=== PATIENT | female | born 2000 | race Caucasian/White ===

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

== ENCOUNTER 2020-12-17 19:41 | Emergency (ER) | payer OTHER ==
[2020-12-17] MEDS ORDERED: Sodium Chloride 0.9% 1000 ML 1,000 ML IV STA (20:09)
[2020-12-17] MEDS ORDERED: MORPHINE SULFATE 2 MG INJ IV ONE (20:09)
[2020-12-17] MEDS ORDERED: Zofran 4 MG/2 ML VIAL IV ONE (20:09)
--- NOTE | 2020-12-17 20:16 | ERPHSYRPT ---
- History of Present Illness Historian: patient Exam Limitations: no limitations Patient Subjective Stated Complaint: Patient states " I have been having ABD pain with nausea and vomiting last couple of days. The ABD pain is all over my ABD and it goes into my back" I have tried to lay down and do different things but it hasn't helped my pain and I just feel like shit". Triage Nursing Assessment: Patient arrived to ED per self and ambulated to room without difficulty. Gait steady. Patient A/O times 4. Patient able to follow directions without difficulty. Patient able to void and leave urine sample. Lungs clear bilateral A/P throughout. Patient denies any SOB or chest pain. Cap refill < 3 seconds. No S/S of acute respriatory distress noted. + BS times 4 quads. ABD soft, round, non-distended. Patient noted with pain over entire ABD upon palpitation. Patient states the pain is constant and just continues to get worse. + radial and pedal pulses noted. No dependent edema noted. Oral mucosa clean, moist. Skin turgor < 3 seconds with no S/S of dehydration noted. Patient stated her appetite has really been poor last couple of days. Patient states she has been having a H/A and generalized weakness last couple of days. Central color good. Neuro checks WNL. ROM WNL to all extremities. Physician History: Healthy 20-year-old female who presents with diffuse abdominal pain and low back pain. Darted about 3 to 4 days ago. Worsening. She is a nausea and vomiting as well. No diarrhea or constipation. Fever or URI symptoms and no issues urinating. Sexually active and has missed the last. So possibility of . Denies any vaginal bleeding or vaginal discharge. And also mentioning loss of appetite and taste. Timing/Duration: day(s) (4) Activities at Onset: none Quality: cramping Abdominal Pain Onset Location: generalized abdomen Pain Radiation: no radiation Severity of Pain-Max: mild Severity of Pain-Current: moderate Modifying Factors: Improves With: nothing Associated Symptoms: back, loss of appetite, nausea, vomiting Previous symptoms: no prior history Allergies/Adverse Reactions: No Known Drug Allergies Allergy (Verified 12/17/20 20:12) Hx Tetanus, Diphtheria Vaccination/Date Given: Yes Hx Influenza Vaccination/Date Given: No Hx Pneumococcal Vaccination/Date Given: No Immunizations Up to Date: Yes Travel Risk - International Travel Have you traveled outside of the country in past 3 weeks: No - Coronavirus Screening Are you exhibiting any of the following symptoms?: Yes Symptoms: Vomiting/Diarrhea, Headaches/Body Aches/Fatigue Close contact with a COVID-19 positive Pt in past 14-21 Days: No - Review of Systems Constitutional: No Fever, No Chills Eyes: No Symptoms Ears, Nose, & Throat: No Symptoms Respiratory: No Cough, No Dyspnea Cardiac: No Chest Pain, No Edema, No Syncope Abdominal/Gastrointestinal: Abdominal Pain, Nausea, Vomiting, No Diarrhea Genitourinary Symptoms: No Dysuria Musculoskeletal: No Back Pain, No Neck Pain Skin: No Rash Neurological: No Dizziness, No Focal Weakness, No Sensory Changes Psychological: No Symptoms Endocrine: No Symptoms All Other Systems: Reviewed and Negative - Past Medical History Pertinent Past Medical History: Yes Neurological History: No Pertinent History ENT History: No Pertinent History Cardiac History: No Pertinent History Respiratory History: No Pertinent History Endocrine Medical History: Hyperthyroidism Musculoskeletal History: No Pertinent History GI Medical History: No Pertinent History History: No Pertinent History Psycho-Social History: No Pertinent History Female Reproductive Disorders: No Pertinent History - Past Surgical History Past Surgical History: No Neuro Surgical History: No Pertinent History Cardiac: No Pertinent History Respiratory: No Pertinent History Gastrointestinal: No Pertinent History Genitourinary: No Pertinent History Musculoskeletal: No Pertinent History Female Surgical History: No Pertinent History - Social History Smoking Status: Never smoker Exposure to second hand smoke: Yes Drug Use: none Patient Lives Alone: No - Female History Hx Last Menstrual Period: 11/10/20 Hx Now: No - Nursing Vital Signs Nursing Vital Signs: Initial Vital Signs Temperature 98.4 F 12/17/20 19:51 Pulse Rate 91 H 12/17/20 19:51 Respiratory Rate 18 12/17/20 19:51 Blood Pressure 117/74 12/17/20 19:51 O2 Sat by Pulse Oximetry 100 12/17/20 19:51 Pain Scale Pain Intensity 7 - Physical Exam General Appearance: no apparent distress, alert Eye Exam: PERRL/EOMI, eyes nml inspection Ears, Nose, Throat Exam: normal ENT inspection, pharynx normal, moist mucous membranes Neck Exam: normal inspection, non-tender, supple, full range of motion Respiratory Exam: normal breath sounds, lungs clear, No respiratory distress Cardiovascular Exam: regular rate/rhythm, normal heart sounds Gastrointestinal/Abdomen Exam: soft, tenderness, No distention, No mass, No guarding, No rebound, No organomegaly Pelvic Exam: not done Back Exam: normal inspection, normal range of motion, No CVA tenderness, No vertebral tenderness Extremity Exam: normal inspection, normal range of motion, pelvis stable Neurologic Exam: alert, oriented x 3, cooperative, normal mood/affect, nml cerebellar function, sensation nml, No motor deficits Skin Exam: normal color, warm, dry SpO2: 100 - Course Nursing assessment & vital signs reviewed: Yes EKG Interpreted by Me: Sinus Rhythm, NORMAL AXIS, NORMAL INTERVALS, NORMAL QRS Ordered Tests: Active Orders 24 hr Category Date Time Status EKG-ER Only STAT Care 12/17/20 20:09 Active IV Insertion STAT Care 12/17/20 20:09 Active NPO (ED) STAT Care 12/17/20 20:09 Active AMYLASE Stat Lab 12/17/20 20:42 Completed BMP Stat Lab 12/17/20 20:42 Completed CBC W DIFF Stat Lab 12/17/20 20:42 Completed CULTURE,URINE Stat Lab 12/17/20 20:22 Received HCG,QUALITATIVE URINE Stat Lab 12/17/20 20:22 Completed Hepatic Function Panel Stat Lab 12/17/20 20:42 Completed LIPASE Stat Lab 12/17/20 20:42 Completed PROTIME WITH INR Stat Lab 12/17/20 20:42 Completed TROPONIN Q3H Lab 12/17/20 20:42 Completed TROPONIN Q3H Lab 12/17/20 23:15 Ordered TROPONIN Q3H Lab 12/18/20 02:15 Ordered TROPONIN Q3H Lab 12/18/20 05:15 Ordered TROPONIN Q3H Lab 12/18/20 08:15 Ordered UA W/RFX UR CULTURE Stat Lab 12/17/20 20:22 Completed Medication Summary Discontinued Medications Generic Name Dose Route Start Last Admin Trade Name Freq PRN Reason Stop Dose Admin Sodium Chloride 1,000 mls @ 999 mls/hr 12/17/20 20:09 12/17/20 20:45 Sodium Chloride 0.9% 1000 Ml IV 12/17/20 21:09 999 mls/hr .Q1H1M STA Administration Sodium Chloride Confirm 12/17/20 20:41 Sodium Chloride 0.9% 1000 Ml Administered 12/17/20 20:42 Dose 1,000 mls @ ud .ROUTE .STK-MED ONE Morphine Sulfate 2 mg 12/17/20 20:09 12/17/20 20:45 Morphine Sulfate 2 Mg Inj IV 12/17/20 20:10 2 mg STAT ONE Administration Morphine Sulfate Confirm 12/17/20 20:41 Morphine Sulfate 2 Mg Inj Administered 12/17/20 20:42 Dose 2 mg .ROUTE .STK-MED ONE Ondansetron HCl 4 mg 12/17/20 20:09 12/17/20 20:45 Zofran 4 Mg/2 Ml Vial IV 12/17/20 20:10 4 mg STAT ONE Administration Ondansetron HCl Confirm 12/17/20 20:41 Zofran 4 Mg/2 Ml Vial Administered 12/17/20 20:42 Dose 4 mg .ROUTE .STK-MED ONE Lab/Rad Data: Laboratory Result Diagrams 12/17/20 20:42 12/17/20 20:42 Laboratory Results 12/17/20 12/17/20 12/17/20 Range/Units 20:42 20:42 20:42 WBC (4.0-10.5) K/mm3 RBC (4.1-5.4) M/mm3 Hgb (12.0-16.0) gm/dl Hct (35-47) % MCV (78-100) fl MCH (26-32) pg MCHC (32-36) g/dl RDW (11.5-14.0) % Plt Count (150-450) K/mm3 MPV (7.5-11.0) fl Gran % (36.0-66.0) % Eos # (Auto) (0-0.5) Absolute Lymphs (auto) (1.0-4.6) Absolute Monos (auto) (0.0-1.3) Lymphocytes % (24.0-44.0) % Monocytes % (0.0-12.0) % Eosinophils % (0.00-5.0) % Basophils % (0.0-0.4) % Absolute Granulocytes (1.4-6.9) Basophils # (0-0.4) PT 12.5 H (9.95-12.35) SECONDS INR 1.11 (0.8-3.0) Sodium 138 (137-145) mmol/L Potassium 3.5 (3.5-5.1) mmol/L Chloride 104 (98-107) mmol/L Carbon Dioxide 23 (22-30) mmol/L Anion Gap 14.6 (5-15) MEQ/L BUN 12 (7-17) mg/dL Creatinine 0.79 (0.52-1.04) mg/dL Estimated GFR > 60.0 ML/MIN Glucose 115 H (74-106) mg/dL Calcium 9.4 (8.4-10.2) mg/dL Total Bilirubin 0.30 (0.2-1.3) mg/dL Direct Bilirubin 0 (0.0-0.4) mg/dL AST 25 (14-36) U/L ALT 18 (0-35) U/L Alkaline Phosphatase 58 (38-126) U/L Troponin I < 0.012 (0.000-0.034) ng/mL Serum Total Protein 7.1 (6.3-8.2) g/dL Albumin 4.1 (3.5-5.0) g/dL Amylase 39 (30-110) U/L Lipase 40 (23-300) U/L Urine Color (YELLOW) Urine Appearance (CLEAR) Urine pH (5-6) Ur Specific [place] (1.005-1.025) Urine Protein (Negative) Urine Ketones (NEGATIVE) Urine Blood (0-5) Rob/ul Urine Nitrite (NEGATIVE) Urine Bilirubin (NEGATIVE) Urine Urobilinogen (0-1) mg/dL Ur Leukocyte Esterase (NEGATIVE) Urine WBC (Auto) (0-5) /HPF Urine RBC (Auto) (0-2) /HPF U Epithel Cells (Auto) (FEW) /HPF Urine Bacteria (Auto) (NEGATIVE) /HPF Urine Mucus (Auto) (NEGATIVE) /HPF Urine Culture Reflexed (NO) Urine Glucose (NEGATIVE) mg/dL Urine HCG, Qual (Negative) 12/17/20 12/17/20 12/17/20 Range/Units 20:42 20:22 20:22 WBC 6.5 (4.0-10.5) K/mm3 RBC 4.19 (4.1-5.4) M/mm3 Hgb 12.0 (12.0-16.0) gm/dl Hct 36.7 (35-47) % MCV 87.6 (78-100) fl MCH 28.6 (26-32) pg MCHC 32.7 (32-36) g/dl RDW 13.6 (11.5-14.0) % Plt Count 193 (150-450) K/mm3 MPV 10.0 (7.5-11.0) fl Gran % 57.9 (36.0-66.0) % Eos # (Auto) 0.09 (0-0.5) Absolute Lymphs (auto) 1.98 (1.0-4.6) Absolute Monos (auto) 0.63 (0.0-1.3) Lymphocytes % 30.7 (24.0-44.0) % Monocytes % 9.8 (0.0-12.0) % Eosinophils % 1.4 (0.00-5.0) % Basophils % 0.2 (0.0-0.4) % Absolute Granulocytes 3.74 (1.4-6.9) Basophils # 0.01 (0-0.4) PT (9.95-12.35) SECONDS INR (0.8-3.0) Sodium (137-145) mmol/L Potassium (3.5-5.1) mmol/L Chloride (98-107) mmol/L Carbon Dioxide (22-30) mmol/L Anion Gap (5-15) MEQ/L BUN (7-17) mg/dL Creatinine (0.52-1.04) mg/dL Estimated GFR ML/MIN Glucose (74-106) mg/dL Calcium (8.4-10.2) mg/dL Total Bilirubin (0.2-1.3) mg/dL Direct Bilirubin (0.0-0.4) mg/dL AST (14-36) U/L ALT (0-35) U/L Alkaline Phosphatase (38-126) U/L Troponin I (0.000-0.034) ng/mL Serum Total Protein (6.3-8.2) g/dL Albumin (3.5-5.0) g/dL Amylase (30-110) U/L Lipase (23-300) U/L Urine Color YELLOW (YELLOW) Urine Appearance SLIGHTLY CLOUDY (CLEAR) Urine pH 5.0 (5-6) Ur Specific [place] 1.021 (1.005-1.025) Urine Protein NEGATIVE (Negative) Urine Ketones TRACE (NEGATIVE) Urine Blood MODERATE (0-5) Rob/ul Urine Nitrite NEGATIVE (NEGATIVE) Urine Bilirubin NEGATIVE (NEGATIVE) Urine Urobilinogen NEGATIVE (0-1) mg/dL Ur Leukocyte Esterase TRACE (NEGATIVE) Urine WBC (Auto) 6-10 (0-5) /HPF Urine RBC (Auto) 3-5 (0-2) /HPF U Epithel Cells (Auto) RARE (FEW) /HPF Urine Bacteria (Auto) RARE (NEGATIVE) /HPF Urine Mucus (Auto) SLIGHT (NEGATIVE) /HPF Urine Culture Reflexed YES (NO) Urine Glucose NEGATIVE (NEGATIVE) mg/dL Urine HCG, Qual POSITIVE (Negative) - Progress Progress: improved Progress Note: 12/17/20 21:17 Get abdominal work-up including amylase, lipase and urinalysis also due to her period being late. Results fairly unremarkable except for positive . Discussed plans going forward. Referral to OB will be given. Prescription for vitamins. Guidance given as well. DC home. Counseled pt/family regarding: lab results, diagnosis, need for follow-up - Departure Departure Disposition: Home Clinical Impression: Condition: Stable Critical Care Time: No Referrals: DOCTOR,NO FAMILY [Primary Care Provider] - ANUM MAYERS DO [ACTIVE STAFF] - Instructions: Taking in Enough Fluids While You are Additional Instructions: Symptoms closely. Use nausea medication only as needed. Drink plenty of water. Referral to OB included in your discharge paperwork. Please call for appointment. Return to ER if worse. Prescriptions: Ondansetron ODT 4 MG [Zofran Odt 4 mg] 4 mg PO Q6H PRN PRN #10 tab.rapdis PRN Reason: Vomiting Pnv No.121/Iron/Folic Acid [ Multivitamin Tablet] 1 each PO DAILY 90 Days #90 tablet
[2020-12-17] MEDS ORDERED: Zofran 4 MG/2 ML VIAL ONE (20:41)
[2020-12-17] MEDS ORDERED: Sodium Chloride 0.9% 1000 ML 1,000 ML ONE (20:41)
[2020-12-17] MEDS ORDERED: MORPHINE SULFATE 2 MG INJ ONE (20:41)
[2020-12-17 20:44] LABS: Absolute Neutrophil Ct (ANC) 3.74 (1.4-6.9); BASOPHIL % 0.2 % (0.0-0.4); Basophil (Absolute #) 0.01 (0-0.4); Eosinophil % 1.4 % (0.00-5.0); Eosinophil (Absolute #) 0.09 (0-0.5); Hematocrit 36.7 % (35-47); Lymphocyte (Absolute #) 1.98 (1.0-4.6); Lymphocytes % 30.7 % (24.0-44.0); Mean Cell Volume 87.6 fl (78-100); Mean Corpuscular Hemoglobin 28.6 pg (26-32); Mean Corpuscular Hgb Concent. 32.7 g/dl (32-36); Monocyte (Absolute #) 0.63 (0.0-1.3); Monocytes % 9.8 % (0.0-12.0); Neutrophil % 57.9 % (36.0-66.0); Platelet Count 193 K/mm3 (150-450); Red Blood Count 4.19 M/mm3 (4.1-5.4); Red Cell Distribution Width 13.6 % (11.5-14.0); White Blood Count 6.5 K/mm3 (4.0-10.5)
[2020-12-17 20:51] LABS: Appearance SLIGHTLY CLOUDY (CLEAR); Bacteria RARE /HPF (NEGATIVE); Bilirubin NEGATIVE (NEGATIVE); Blood MODERATE Ery/ul (0-5); Epithelial Cells RARE /HPF (FEW); Glucose NEGATIVE (NEGATIVE); Ketones TRACE (NEGATIVE); Leukocyte Esterase TRACE (NEGATIVE); Mucus SLIGHT /HPF (NEGATIVE); Nitrite NEGATIVE (NEGATIVE); Protein,Urine Dip NEGATIVE (Negative); Specific Gravity 1.021 (1.005-1.025); Urobilinogen NEGATIVE mg/dL (0-1)
[2020-12-17 20:56] LABS: ALBUMIN 4.1 g/dL (3.5-5.0); ALKALINE PHOSPHATASE 58 U/L (38-126); AMYLASE 39 U/L (30-110); ANION GAP 14.6 MEQ/L (5-15); BLOOD UREA NITROGEN 12 mg/dL (7-17); CHLORIDE 104 mmol/L (98-107); Calcium 9.4 mg/dL (8.4-10.2); Carbon Dioxide 23 mmol/L (22-30); Creatinine 1 0.79 mg/dL (0.52-1.04); EST GLOMERULAR FILTRATION RATE > 60.0 ML/MIN; Glucose 115 mg/dL (74-106); LIPASE 40 U/L (23-300); Potassium 3.5 mmol/L (3.5-5.1); SGOT/AST 25 U/L (14-36); SGPT/ALT 18 U/L (0-35); SODIUM 138 mmol/L (137-145); Total Protein 7.1 g/dL (6.3-8.2)
[2020-12-17 21:00] LABS: INR 1.11 (0.8-3.0); PROTIME 12.5 SECONDS (9.95-12.35)
[2020-12-17 21:03] LABS: Direct Bilirubin 0 mg/dL (0.0-0.4)
[2020-12-17 21:22] VITALS: O2SAT 100
[2020-12-17 22:08] VITALS: BP 118/78; PULSE 75
== END 2020-12-17 22:07 | disposition home or self-care (01) ==
LOC: ED 19:41
DX: R10.9 Unspecified abdominal pain (principal); R11.2 Nausea with vomiting, unspecified; Z33.1 Pregnant state, incidental
CPT/HCPCS: 36000; 36415; 80048; 80076; 81001; 82150; 83690; 84484; 84703; 85025; 85610; 87086; 93005; 96374; 96375; 99284; J2270; J2405

== ENCOUNTER 2022-01-21 22:03 | Emergency (ER) | payer OTHER ==
[2022-01-21] MEDS ORDERED: Sodium Chloride 0.9% 1000 ML 1,000 ML IV STA (22:53)
[2022-01-21] MEDS ORDERED: Sodium Chloride 0.9% 1000 ML 1,000 ML ONE (22:56)
[2022-01-21 23:18] VITALS: O2SAT 98
[2022-01-21 23:24] LABS: Absolute Neutrophil Ct (ANC) 3.71 (1.4-6.9); Basophil (Absolute #) 0.02 (0-0.4); Eosinophil (Absolute #) 0.14 (0-0.5); Hematocrit 36.9 % (35-47); Hemoglobin 12.4 gm/dl (12.0-16.0); Lymphocyte (Absolute #) 2.54 (1.0-4.6); Lymphocytes % 35.9 % (24.0-44.0); Mean Cell Volume 88.3 fl (78-100); Mean Corpuscular Hemoglobin 29.7 pg (26-32); Mean Corpuscular Hgb Concent. 33.6 g/dl (32-36); Mean Platelet Volume 10.6 fl (7.5-11.0); Monocyte (Absolute #) 0.67 (0.0-1.3); Monocytes % 9.5 % (0.0-12.0); Neutrophil % 52.3 % (36.0-66.0); Platelet Count 233 K/mm3 (150-450); Red Blood Count 4.18 M/mm3 (4.1-5.4); Red Cell Distribution Width 13.4 % (11.5-14.0); White Blood Count 7.1 K/mm3 (4.0-10.5)
[2022-01-21 23:25] LABS: Bacteria RARE /HPF (NEGATIVE); Epithelial Cells RARE /HPF (FEW); Mucus SLIGHT /HPF (NEGATIVE); RBC 0-2 /HPF (0-2)
[2022-01-21 23:27] LABS: Appearance CLEAR (CLEAR); Bilirubin NEGATIVE (NEGATIVE); Dipstick done @ ? MAIN LAB; Glucose NEGATIVE (NEGATIVE); Ketones NEGATIVE (NEGATIVE); Nitrite NEGATIVE (NEGATIVE); Protein,Urine Dip NEGATIVE (Negative); RBC SMALL Ery/ul (0-5); Specific Gravity >=1.030 (1.005-1.025); Urobilinogen 0.2 mg/dL (0-1)
[2022-01-21 23:28] LABS: Urine Cultured Indicated? YES
[2022-01-21 23:54] LABS: ALKALINE PHOSPHATASE 60 U/L (38-126); ANION GAP 14.3 MEQ/L (5-15); BLOOD UREA NITROGEN 15 mg/dL (7-17); CHLORIDE 109 mmol/L (98-107); Calcium 9.3 mg/dL (8.4-10.2); Carbon Dioxide 20 mmol/L (22-30); Creatinine 1 0.61 mg/dL (0.52-1.04); EST GLOMERULAR FILTRATION RATE > 60.0 ML/MIN; Glucose 92 mg/dL (74-106); Potassium 3.9 mmol/L (3.5-5.1); SGOT/AST 21 U/L (14-36); SGPT/ALT 11 U/L (0-35); SODIUM 139 mmol/L (137-145); Total Protein 6.7 g/dL (6.3-8.2)
[2022-01-21] MEDS ORDERED: TYLENOL EXTRA STRENGTH 500 MG PO STA (23:54)
[2022-01-21] MEDS ORDERED: TYLENOL EXTRA STRENGTH 500 MG ONE (23:56)
[2022-01-21] MEDS ORDERED: ROCEPHIN 1 Gm-D5w 50 ml Bag** 1 G/50 ML IVPB IV STA (23:57)
--- NOTE | 2022-01-21 23:58 | ERPHSYRPT ---
- History of Present Illness Time Seen by Provider: 01/21/22 22:23 Source: patient Exam Limitations: no limitations Patient Subjective Stated Complaint: pt states she has been having light spotting for the past week. states she has been having lower back pain and cramping. Triage Nursing Assessment: pt alert and oriented, answers questions approp. pt ambulatory with steady gait noted. respirations nonlabored. skin pink and warm. Physician History: 21 years old 2 para 1 at almost 7 weeks gestation per LMP presented in the ER with 1 week history of intermittent spotting and low back pain dull aching mild nature with generalized weakness fatigue and tiredness. Patient reports only spotting with no lito bleeding are passing of tissues.Did not even soak 1 pad. She was seen at [facility] couple of weeks ago and ultrasound was done but they could not see pole at that time. Denies any urinary symptoms. No fever or chills reported. Timing/Duration: week(s) (1), intermittent Activites at Onset: rest Quality: dullness Onset Location: low back pain Pain Radiation: none Severity of Pain-Max: moderate Severity of Pain-Current: mild Sexual intercourse history: non-contributory Modifying Factors: Improves With: nothing Associated Symptoms: Allergies/Adverse Reactions: No Known Drug Allergies Allergy (Verified 01/21/22 22:25) Home Medications: Levothyroxine Sodium 25 Mcg [Synthroid 25 Mcg] 25 mcg PO DAILY 01/21/22 [History] Hx Tetanus, Diphtheria Vaccination/Date Given: Yes Hx Influenza Vaccination/Date Given: No Hx Pneumococcal Vaccination/Date Given: No Travel Risk - International Travel Have you traveled outside of the country in past 3 weeks: No - Coronavirus Screening Are you exhibiting any of the following symptoms?: No Close contact with a COVID-19 positive Pt in past 14-21 Days: No - Vaccine Status Have you recieved a Covid-19 vaccination: Yes Batch Unit Treater: Moderna - Vaccination Dates Date of 2cond Vaccination (if applicable): 11/30/21 - Review of Systems Constitutional: Fatigue, Weakness Eyes: No Symptoms Ears, Nose, & Throat: No Symptoms Respiratory: No Symptoms Cardiac: No Symptoms Abdominal/Gastrointestinal: No Symptoms Genitourinary Symptoms: , Vaginal Bleeding Musculoskeletal: Back Pain Psychological: Anxiety Endocrine: No Symptoms Hematologic/Lymphatic: No Symptoms Immunological/Allergic: No Symptoms - Past Medical History Pertinent Past Medical History: Yes Neurological History: No Pertinent History ENT History: No Pertinent History Cardiac History: No Pertinent History Respiratory History: No Pertinent History Endocrine Medical History: Hypothyroidism Musculoskeletal History: No Pertinent History GI Medical History: No Pertinent History History: No Pertinent History Psycho-Social History: No Pertinent History Female Reproductive Disorders: No Pertinent History - Past Surgical History Past Surgical History: Yes Neuro Surgical History: No Pertinent History Cardiac: No Pertinent History Respiratory: No Pertinent History Gastrointestinal: No Pertinent History Genitourinary: No Pertinent History Musculoskeletal: No Pertinent History Female Surgical History: Section Other Surgical History: c section 6 mos ago - Social History Smoking Status: Never smoker Exposure to second hand smoke: No Drug Use: none Patient Lives Alone: Yes - Female History Hx Last Menstrual Period: 11/26/21 Hx Now: Yes - Nursing Vital Signs Nursing Vital Signs: Initial Vital Signs Temperature 98.3 F 01/21/22 22:09 Pulse Rate 92 H 01/21/22 22:09 Respiratory Rate 16 01/21/22 22:09 Blood Pressure 110/76 01/21/22 22:09 O2 Sat by Pulse Oximetry 97 01/21/22 22:09 Pain Scale Pain Intensity 8 - Physical Exam General Appearance: no apparent distress, alert, anxiety Eye Exam: PERRL/EOMI Ears, Nose, Throat Exam: normal ENT inspection Neck Exam: normal inspection, full range of motion Respiratory Exam: normal breath sounds, lungs clear Cardiovascular Exam: regular rate/rhythm, normal heart sounds Gastrointestinal/Abdomen Exam: soft, normal bowel sounds, No tenderness Back Exam: normal inspection, normal range of motion Extremity Exam: normal inspection, normal range of motion Neurologic Exam: alert, oriented x 3, cooperative Skin Exam: normal color SpO2 Interpretation: normal SpO2: 98 O2 Delivery: Room Air Ordered Tests: Active Orders 24 hr Category Date Time Status IV Insertion STAT Care 01/21/22 22:53 Completed CBC W DIFF Stat Lab 01/21/22 23:08 Completed CMP Stat Lab 01/21/22 23:08 Completed CULTURE,URINE Stat Lab 01/21/22 23:10 Received HCG, Quantitative (Inhouse) Stat Lab 01/21/22 23:08 Completed Medication Summary Discontinued Medications Generic Name Dose Route Start Last Admin Trade Name Freq PRN Reason Stop Dose Admin Acetaminophen 1,000 mg 01/21/22 23:54 01/21/22 23:56 Acetaminophen 500 Mg Tablet PO 01/21/22 23:55 1,000 mg STAT STA Administration Acetaminophen Confirm 01/21/22 23:56 Acetaminophen 500 Mg Tablet Administered 01/21/22 23:57 Dose 1,000 mg .ROUTE .STK-MED ONE Sodium Chloride 1,000 mls @ 999 mls/hr 01/21/22 22:53 01/21/22 23:55 Sodium Chloride 0.9% 1000 Ml IV 01/21/22 23:53 Infused .Q1H1M STA Infusion Sodium Chloride Confirm 01/21/22 22:56 Sodium Chloride 0.9% 1000 Ml Administered 01/21/22 22:57 Dose 1,000 mls @ ud .ROUTE .STK-MED ONE Ceftriaxone Sodium/Dextrose 1 g in 50 mls @ 100 mls/hr 01/21/22 23:57 01/22/22 00:45 Rocephin 1 Gm-D5w 50 Ml Bag IV 01/22/22 00:26 Infused STAT STA Infusion Ceftriaxone Sodium/Dextrose Confirm 01/21/22 23:59 Rocephin 1 Gm-D5w 50 Ml Bag Administered 01/22/22 00:00 Dose 1 g in 50 mls @ ud IV .STK-MED ONE Lab/Rad Data: Laboratory Result Diagrams 01/21/22 23:08 01/21/22 23:08 Laboratory Results 01/21/22 01/21/22 01/21/22 Range/Units 23:10 23:08 23:08 WBC (4.0-10.5) K/mm3 RBC (4.1-5.4) M/mm3 Hgb (12.0-16.0) gm/dl Hct (35-47) % MCV (78-100) fl MCH (26-32) pg MCHC (32-36) g/dl RDW (11.5-14.0) % Plt Count (150-450) K/mm3 MPV (7.5-11.0) fl Gran % (36.0-66.0) % Eos # (Auto) (0-0.5) Absolute Lymphs (auto) (1.0-4.6) Absolute Monos (auto) (0.0-1.3) Lymphocytes % (24.0-44.0) % Monocytes % (0.0-12.0) % Eosinophils % (0.00-5.0) % Basophils % (0.0-0.4) % Absolute Granulocytes (1.4-6.9) Basophils # (0-0.4) Sodium 139 (137-145) mmol/L Potassium 3.9 (3.5-5.1) mmol/L Chloride 109 H (98-107) mmol/L Carbon Dioxide 20 L (22-30) mmol/L Anion Gap 14.3 (5-15) MEQ/L BUN 15 (7-17) mg/dL Creatinine 0.61 (0.52-1.04) mg/dL Estimated GFR > 60.0 ML/MIN Glucose 92 (74-106) mg/dL Calcium 9.3 (8.4-10.2) mg/dL Total Bilirubin 0.30 (0.2-1.3) mg/dL AST 21 (14-36) U/L ALT 11 (0-35) U/L Alkaline Phosphatase 60 (38-126) U/L Serum Total Protein 6.7 (6.3-8.2) g/dL Albumin 4.0 (3.5-5.0) g/dL Beta HCG, Quant 209894 mIU/ml Urinalys Dipstick Clnc MAIN LAB Urine Color YELLOW (YELLOW) Urine Appearance CLEAR (CLEAR) Urine pH 6.0 (5-6) Ur Specific [place] >=1.030 (1.005-1.025) POC Urine Protein Conf NEGATIVE (Negative) Urine Ketones NEGATIVE (NEGATIVE) Urine Nitrite NEGATIVE (NEGATIVE) Urine Bilirubin NEGATIVE (NEGATIVE) Urine Urobilinogen 0.2 (0-1) mg/dL Urine Leukocytes NEGATIVE (NEGATIVE) Urine WBC (Auto) 6-10 (0-5) /HPF Urine RBC (Auto) 0-2 (0-2) /HPF U Epithel Cells (Auto) RARE (FEW) /HPF Urine Bacteria (Auto) RARE (NEGATIVE) /HPF Urine RBC SMALL (0-5) Rob/ul Urine Mucus (Auto) SLIGHT (NEGATIVE) /HPF Ur Culture Indicated? YES Urine Glucose NEGATIVE (NEGATIVE) mg/dL ABO Group A Rh Factor POSITIVE Antibody Screen NEGATIVE (NEGATIVE) 01/21/22 Range/Units 23:08 WBC 7.1 (4.0-10.5) K/mm3 RBC 4.18 (4.1-5.4) M/mm3 Hgb 12.4 (12.0-16.0) gm/dl Hct 36.9 (35-47) % MCV 88.3 (78-100) fl MCH 29.7 (26-32) pg MCHC 33.6 (32-36) g/dl RDW 13.4 (11.5-14.0) % Plt Count 233 (150-450) K/mm3 MPV 10.6 (7.5-11.0) fl Gran % 52.3 (36.0-66.0) % Eos # (Auto) 0.14 (0-0.5) Absolute Lymphs (auto) 2.54 (1.0-4.6) Absolute Monos (auto) 0.67 (0.0-1.3) Lymphocytes % 35.9 (24.0-44.0) % Monocytes % 9.5 (0.0-12.0) % Eosinophils % 2.0 (0.00-5.0) % Basophils % 0.3 (0.0-0.4) % Absolute Granulocytes 3.71 (1.4-6.9) Basophils # 0.02 (0-0.4) Sodium (137-145) mmol/L Potassium (3.5-5.1) mmol/L Chloride (98-107) mmol/L Carbon Dioxide (22-30) mmol/L Anion Gap (5-15) MEQ/L BUN (7-17) mg/dL Creatinine (0.52-1.04) mg/dL Estimated GFR ML/MIN Glucose (74-106) mg/dL Calcium (8.4-10.2) mg/dL Total Bilirubin (0.2-1.3) mg/dL AST (14-36) U/L ALT (0-35) U/L Alkaline Phosphatase (38-126) U/L Serum Total Protein (6.3-8.2) g/dL Albumin (3.5-5.0) g/dL Beta HCG, Quant mIU/ml Urinalys Dipstick Clnc Urine Color (YELLOW) Urine Appearance (CLEAR) Urine pH (5-6) Ur Specific [place] (1.005-1.025) POC Urine Protein Conf (Negative) Urine Ketones (NEGATIVE) Urine Nitrite (NEGATIVE) Urine Bilirubin (NEGATIVE) Urine Urobilinogen (0-1) mg/dL Urine Leukocytes (NEGATIVE) Urine WBC (Auto) (0-5) /HPF Urine RBC (Auto) (0-2) /HPF U Epithel Cells (Auto) (FEW) /HPF Urine Bacteria (Auto) (NEGATIVE) /HPF Urine RBC (0-5) Rob/ul Urine Mucus (Auto) (NEGATIVE) /HPF Ur Culture Indicated? Urine Glucose (NEGATIVE) mg/dL ABO Group Rh Factor Antibody Screen (NEGATIVE) - Progress Progress: improved Air Movement: good Progress Note: 01/22/22 00:21 years old is evaluated for low back pain, intermittent spotting early in the . She is given fluids and Tylenol for symptomatic relief. On reevaluation patient is feeling much better. Grossly unremarkable work-up but does have some element of UTI and given a dose of Rocephin in here 1 continue with Keflex to go home. I have reviewed her lab work and ultrasound from [facility] which showed 4 weeks 6 days IUP/gestational sac without poles and no ectopic. Do not think she needs another ultrasound. Recommended pelvic rest, increase hydration and outpatient OB follow-up. Discussed signs symptoms of worsening needing return to ER which she seems understanding. 01/22/22 0Patient changed her pad while in the ER and there was dark color spott ing with no clots. She is thoroughly counseled about conservative management at this stage in . She was not happy with that we do not have OB available in the ER and left without paperwork. Blood Culture(s) Obtained: No Antibiotics given: Yes Counseled pt/family regarding: lab results, diagnosis, need for follow-up, rad results - Departure Departure Disposition: Home Clinical Impression: UTI in , antepartum, Vaginal bleeding affecting early Condition: Stable Critical Care Time: No Referrals: DOCTOR,NO FAMILY [Primary Care Provider] - Follow up/PCP as directed ANUM MAYERS DO [ACTIVE STAFF] - Follow up/PCP as directed (Call tomorrow for appointment for reevaluation) Instructions: Bleeding With (DC), Urinary Tract Infections in Additional Instructions: Drink plenty of fluids to keep yourself well-hydrated. Follow-up with OB for reevaluation. Return to ER for worsening low back pain, increasing vaginal bleeding, cramping etc. Take Tylenol as needed. Prescriptions: Cephalexin Mh 500 mg [Keflex 500 mg] 500 mg PO TID #21 cap
[2022-01-21] MEDS ORDERED: ROCEPHIN 1 Gm-D5w 50 ml Bag** 1 G/50 ML IVPB IV ONE (23:59)
[2022-01-22 00:05] VITALS: BP 110/80; PULSE 77
[2022-01-22 00:12] LABS: ABO TYPING A; Antibody Screen NEGATIVE (NEGATIVE); RH TYPING POSITIVE
== END 2022-01-22 01:00 | disposition home or self-care (01) ==
LOC: ED 22:03
DX: O23.41 Unspecified infection of urinary tract in pregnancy, first trimester (principal); N39.0 Urinary tract infection, site not specified; Z3A.01 Less than 8 weeks gestation of pregnancy; O20.9 Hemorrhage in early pregnancy, unspecified; M54.50 Low back pain, unspecified; R53.1 Weakness; R53.83 Other fatigue
CPT/HCPCS: 36000; 36415; 80053; 81015; 84702; 85025; 86850; 86900; 86901; 87086; 96360; 96365; 99284; J0696; A9270-GY

== ENCOUNTER 2024-01-12 21:53 | Emergency (ER) | payer MEDICAID, OTHER ==
[2024-01-12 22:14] VITALS: TEMP 99.3
--- NOTE | 2024-01-12 22:27 | ERPHSYRPT ---
- History of Present Illness Time Seen by Provider: 01/12/24 22:10 Source: patient Exam Limitations: no limitations Patient Subjective Stated Complaint: pt states she had a bartholen cyst removed from inside her vagina on 01/07/11 at [facility] and has been having vag inal burning pain as has been fatigued. Triage Nursing Assessment: pt ambulated to room 9 independently with slow steady gait after standing on scale for weight acquisition and to bathroom to provide urine sample. pt is alert and oriented times three, able to speak in complete sentences, able to move all extremities, and with resp even and unlabored. pt states that she is moving all extremities like normal but that she just "lays on the couch". reports 8/10 burning pain to vagina. denies lightheadedness, dizziness, cp, n/v/ diarrhea, difficulty with urinary or bowel elimination. Physician History: 23yo f presents for fatigue, malaise, chills lasting 4d. Pt had bartholin's gland removed by Dr White at [facility] on 01/08/24. Pt reports she has felt poorly since. Pt was told she had UTI, was started on nitrofurantoin yesterday. Pt states she has been having davila/brown discharge that is foul smelling in nature since her procedure. Pt reports some pain in the vagina in area of the operation, otherwise denies abdominal pain. Pt denies cp, soa, n/v. Timing/Duration: day(s) (4d) Quality: sharpness Onset Location: vaginal Pain Radiation: none Severity of Pain-Max: mild Severity of Pain-Current: mild Prior abdominal problems: other (recent surgery 01/08/24 Dr White [facility]) Associated Symptoms: chills, diaphoresis, dysuria, vaginal discharge, No nausea, No vomiting Allergies/Adverse Reactions: morphine Allergy (Verified 01/12/24 21:59) Home Medications: Nitrofurantoin Macro 100 mg [Macrobid 100MG Capsule] 100 mg PO BID 01/12/24 [History] Oxycodone HCl/Acetaminophen [Oxycodone-Acetaminophen 5-325] 1 each PO Q4H PRN PRN 01/12/24 [History] Hx Tetanus, Diphtheria Vaccination/Date Given: No Hx Influenza Vaccination/Date Given: No Hx Pneumococcal Vaccination/Date Given: No Travel Risk - International Travel Have you traveled outside of the country in past 3 weeks: No - Emerging Infectious Disease Are you exhibiting symptoms associated with any current EIDs: No - Review of Systems Constitutional: Chills, Fatigue, Malaise Respiratory: No Symptoms Cardiac: No Symptoms Abdominal/Gastrointestinal: No Symptoms Genitourinary Symptoms: Dysuria, Vaginal Discharge, No Vaginal Itching - Past Medical History Pertinent Past Medical History: Yes Neurological History: No Pertinent History ENT History: No Pertinent History Cardiac History: No Pertinent History Respiratory History: No Pertinent History Endocrine Medical History: Hypothyroidism Musculoskeletal History: No Pertinent History GI Medical History: No Pertinent History History: No Pertinent History Psycho-Social History: No Pertinent History Female Reproductive Disorders: No Pertinent History Other Medical History: HSV1 - Past Surgical History Past Surgical History: Yes Neuro Surgical History: No Pertinent History Cardiac: No Pertinent History Respiratory: No Pertinent History Gastrointestinal: No Pertinent History Genitourinary: No Pertinent History Musculoskeletal: No Pertinent History Female Surgical History: Section Other Surgical History: c section x2, vaginal gland removal - Female History Hx Last Menstrual Period: 12/27/23 Hx Now: No - Social History Smoking Status: Never smoker Exposure to second hand smoke: No Drug Use: none Patient Lives Alone: Yes - Nursing Vital Signs Nursing Vital Signs: Initial Vital Signs Temperature 99.3 F 01/12/24 22:01 Pulse Rate 70 01/12/24 22:01 Respiratory Rate 20 01/12/24 22:01 Blood Pressure 108/80 01/12/24 22:01 O2 Sat by Pulse Oximetry 94 L 01/12/24 22:01 Pain Scale Pain Intensity 10 - Physical Exam SpO2: 97 Ordered Tests: Active Orders 24 hr Category Date Time Status CHEST WITH CONTRAST [CT] Stat Exams 01/12/24 23:35 Completed BLOOD CULTURE Stat Lab 01/12/24 22:48 Received CBC W DIFF Stat Lab 01/12/24 22:30 Completed CMP Stat Lab 01/12/24 22:30 Completed CULTURE,URINE Stat Lab 01/12/24 22:25 Received HCG QUALITATIVE, URINE Stat Lab 01/12/24 22:30 Completed UA W/RFX UR CULTURE Stat Lab 01/12/24 22:25 Completed Medication Summary Discontinued Medications Generic Name Dose Route Start Last Admin Trade Name Freq PRN Reason Stop Dose Admin Acetaminophen 975 mg 01/12/24 23:17 01/12/24 23:24 Acetaminophen 325 Mg Tablet PO 01/12/24 23:18 975 mg STAT ONE Administration Acetaminophen Confirm 01/12/24 23:23 Acetaminophen 325 Mg Tablet Administered 01/12/24 23:24 Dose 975 mg .ROUTE .STK-MED ONE Sodium Chloride 1,000 mls @ 999 mls/hr 01/12/24 22:19 01/13/24 00:11 Sodium Chloride 0.9% 1000 Ml IV 01/12/24 23:19 Infused .Q1H1M STA Infusion Sodium Chloride Confirm 01/12/24 22:38 Sodium Chloride 0.9% 1000 Ml Administered 01/12/24 22:39 Dose 1,000 mls @ ud .ROUTE .STK-MED ONE Ceftriaxone Sodium 1 gm in 100 mls @ 200 mls/hr 01/12/24 23:17 01/13/24 00:11 Rocephin 1 Gm / 100 Ml Nacl IV 01/12/24 23:46 Infused STAT ONE Infusion Ceftriaxone Sodium Confirm 01/12/24 23:23 Rocephin 1 Gm / 100 Ml Nacl Administered 01/12/24 23:24 Dose 1 gm in 100 mls @ ud IV .STK-MED ONE Lab/Rad Data: Laboratory Result Diagrams 01/12/24 22:30 01/12/24 22:30 Laboratory Results 01/12/24 01/12/24 01/12/24 Range/Units 22:30 22:30 22:30 WBC 9.4 (4.0-10.5) x10^3/uL RBC 3.94 L (4.1-5.4) x10^6/uL Hgb 11.0 L (12.0-16.0) g/dL Hct 34.0 L (35-47) % MCV 86.3 (78-100) fL MCH 27.9 (26-32) pg MCHC 32.4 (32-36) g/dL RDW 13.2 (11.5-14.0) % Plt Count 251 (150-450) x10^3/uL MPV 10.0 (7.5-11.0) fL Gran % 79.1 H (36.0-66.0) % Immature Gran % (Auto) 0.2 (0.00-0.4) % Nucleat RBC Rel Count 0.0 (0.00-0.1) % Eos # (Auto) 0.25 (0-0.5) x10^3/uL Immature Gran # (Auto) 0.02 (0.00-0.03) x10^3u/L Absolute Lymphs (auto) 0.97 L (1.0-4.6) x10^3/uL Absolute Monos (auto) 0.71 (0.0-1.3) x10^3/uL Absolute Nucleated RBC 0.00 (0.00-0.01) x10^3u/L Lymphocytes % 10.3 L (24.0-44.0) % Monocytes % 7.5 (0.0-12.0) % Eosinophils % 2.7 (0.00-5.0) % Basophils % 0.2 (0.0-0.4) % Absolute Granulocytes 7.44 H (1.4-6.9) x10^3/uL Basophils # 0.02 (0-0.4) x10^3/uL Sodium 137 (135-145) mmol/L Potassium 3.8 (3.5-5.1) mmol/L Chloride 106 (98-107) mmol/L Carbon Dioxide 23 (22-30) mmol/L Anion Gap 11.8 (5-15) MEQ/L BUN 14 (7-17) mg/dL Creatinine 1.02 (0.52-1.04) mg/dL Estimated GFR 78.8 ML/MIN Glucose 123 H (74-106) mg/dL Calcium 9.2 (8.4-10.2) mg/dL Total Bilirubin 0.30 (0.2-1.3) mg/dL AST 19 (14-36) U/L ALT 14 (0-35) U/L Alkaline Phosphatase 88 (38-126) U/L Serum Total Protein 7.1 (6.3-8.2) g/dL Albumin 4.1 (3.5-5.0) g/dL Urine Color (Yellow) Urine Appearance (Clear) Urine pH (4.6-8.0) Ur Specific [place] (1.005-1.030) Urine Protein (Negative) Urine Glucose (UA) (Negative) mg/dL Urine Ketones (Negative) Urine Blood (Negative) Urine Nitrite (Negative) Urine Bilirubin (Negative) Urine Urobilinogen (0.2) mg/dL Ur Leukocyte Esterase (Negative) U Hyaline Cast (Auto) (0-2) /LPF Urine Microscopic RBC (0-5) /HPF Urine Microscopic WBC (0-5) /HPF Ur Epithelial Cells (None Seen) /HPF Urine Bacteria (None Seen) /HPF Urine Culture Reflexed (NO) Urine HCG, Qual NEGATIVE (NEGATIVE) Vaginal Carol Group (NEGATIVE) Carol species (NEGATIVE) Chlamydia DNA Probe (NEGATIVE) N.gonorrhoeae DNA Probe (NEGATIVE) T. vaginalis (PCR) (NEGATIVE) Bact vaginosis (PCR) (NEGATIVE) 01/12/24 01/12/24 01/12/24 Range/Units 22:25 22:25 00:17 WBC (4.0-10.5) x10^3/uL RBC (4.1-5.4) x10^6/uL Hgb (12.0-16.0) g/dL Hct (35-47) % MCV (78-100) fL MCH (26-32) pg MCHC (32-36) g/dL RDW (11.5-14.0) % Plt Count (150-450) x10^3/uL MPV (7.5-11.0) fL Gran % (36.0-66.0) % Immature Gran % (Auto) (0.00-0.4) % Nucleat RBC Rel Count (0.00-0.1) % Eos # (Auto) (0-0.5) x10^3/uL Immature Gran # (Auto) (0.00-0.03) x10^3u/L Absolute Lymphs (auto) (1.0-4.6) x10^3/uL Absolute Monos (auto) (0.0-1.3) x10^3/uL Absolute Nucleated RBC (0.00-0.01) x10^3u/L Lymphocytes % (24.0-44.0) % Monocytes % (0.0-12.0) % Eosinophils % (0.00-5.0) % Basophils % (0.0-0.4) % Absolute Granulocytes (1.4-6.9) x10^3/uL Basophils # (0-0.4) x10^3/uL Sodium (135-145) mmol/L Potassium (3.5-5.1) mmol/L Chloride (98-107) mmol/L Carbon Dioxide (22-30) mmol/L Anion Gap (5-15) MEQ/L BUN (7-17) mg/dL Creatinine (0.52-1.04) mg/dL Estimated GFR ML/MIN Glucose (74-106) mg/dL Calcium (8.4-10.2) mg/dL Total Bilirubin (0.2-1.3) mg/dL AST (14-36) U/L ALT (0-35) U/L Alkaline Phosphatase (38-126) U/L Serum Total Protein (6.3-8.2) g/dL Albumin (3.5-5.0) g/dL Urine Color Dark Yellow A (Yellow) Urine Appearance Turbid A (Clear) Urine pH 6.5 (4.6-8.0) Ur Specific [place] >=1.030 A (1.005-1.030) Urine Protein 100 A (Negative) Urine Glucose (UA) Negative (Negative) mg/dL Urine Ketones 15 A (Negative) Urine Blood Large A (Negative) Urine Nitrite Negative (Negative) Urine Bilirubin Small A (Negative) Urine Urobilinogen 1.0 A (0.2) mg/dL Ur Leukocyte Esterase Moderate A (Negative) U Hyaline Cast (Auto) NONE SEEN (0-2) /LPF Urine Microscopic RBC 6-10 A (0-5) /HPF Urine Microscopic WBC 21-50 A (0-5) /HPF Ur Epithelial Cells Moderate A (None Seen) /HPF Urine Bacteria Few A (None Seen) /HPF Urine Culture Reflexed YES (NO) Urine HCG, Qual (NEGATIVE) Vaginal Carol Group NOT DETECTED (NEGATIVE) Carol species NOT DETECTED (NEGATIVE) Chlamydia DNA Probe NOT DETECTED (NEGATIVE) N.gonorrhoeae DNA Probe NOT DETECTED (NEGATIVE) T. vaginalis (PCR) NOT DETECTED (NEGATIVE) Bact vaginosis (PCR) POSITIVE A (NEGATIVE) - Progress Progress: improved Air Movement: good Progress Note: 01/12/24 23:34 pt complaining of some chest discomfort w/ deep inspiration in setting of chest discomfort and tachycardia will order CTA chest 01/13/24 01:35 CTA chest 1.7 x 1.3 cm hemangioma noted in the segment of liver. No aggressive appearing osseous lesions are identified. IMPRESSION: No evidence of pulmonary embolism allowing for suboptimal opacification of pulmonary vasculature. Focal emphysematous changes noted in the superior segment of left lung lower lobe. A 0.5 cm calcified nodule in the superior segment of right lung upper lobe - Benign nodule. pt reports feeling much better, states she is ready to go home low concern for systemic infection, sx likely 2/2 UTI discharge likely 2/2 BV in combination w/ recent surgery plan to dc home w/ close follow up w/ Dr White (OBGYN), instructed to call his office first thing in the morning will send keflex 500mg BID 5d, stop nitrofurantoin; metronidazole 500mg BID 7d recommend taking in probiotic rich foods while on these antibiotics (yogurts, probiotic supplement, etc) to try to avoid diarrhea continue tylenol/ibuprofen for pain instructed to promote plenty of oral hydration w/ clear liquids/gatorade/pedialyte return to ED if: develop chest pain, develop shortness of breath, fever spikes and does not resolve with tylenol, develop significant vaginal pain/bleeding 01/13/24 01:47 Blood Culture(s) Obtained: No Antibiotics given: Yes Counseled pt/family regarding: lab results, diagnosis, need for follow-up, rad results Medical Desision Making - Diagnostic Testing Diagnostic test were ordered, analyzed, and reviewed by me: Yes Radiological Interpretation: Reviewed by me, Teleradiologist Report - Risk of complications Low Risk: Low risk of morbidity from additional dx testing or treatment - Departure Departure Disposition: Home Clinical Impression: Vaginal discharge, Tachycardia, Bacterial vaginosis UTI (urinary tract infection) Qualifiers: Urinary tract infection type: acute cystitis Hematuria presence: with hematuria Qualified Code(s): N30.01 - Acute cystitis with hematuria Condition: Stable Critical Care Time: No Referrals: DOCTOR,NO FAMILY [Primary Care Provider] - Follow up/PCP as directed Additional Instructions: plan to dc home w/ close follow up w/ Dr White (OBGYN), instructed to call his office first thing in the morning will send keflex 500mg BID 5d, stop nitrofurantoin; metronidazole 500mg BID 7d recommend taking in probiotic rich foods while on these antibiotics (yogurts, probiotic supplement, etc) to try to avoid diarrhea continue tylenol/ibuprofen for pain instructed to promote plenty of oral hydration w/ clear liquids/gatorade/pedialyte return to ED if: develop chest pain, develop shortness of breath, fever spikes and does not resolve with tylenol, develop significant vaginal pain/bleeding Prescriptions: Metronidazole 500 mg [Flagyl 500 MG] 500 mg PO BID 7 Days #14 tablet Cephalexin Mh 500 mg [Keflex 500 mg] 500 mg PO BID 6 Days #12 cap
[2024-01-12] MEDS ORDERED: Sodium Chloride 0.9% 1000 ML 1,000 ML ONE (22:38)
[2024-01-12] MEDS: Sodium Chloride 0.9% 1000 ML 1,000 ML IV STA (22:40)
[2024-01-12 22:44] LABS: ADD URINE CULTURE? YES (NO); Appearance Turbid (Clear); Bacteria Few /HPF (None Seen); Bilirubin Small (Negative); Blood Large (Negative); Epithelial Cells Moderate /HPF (None Seen); Glucose, Urine Negative (Negative); Hyaline Casts NONE SEEN /LPF (0-2); Ketones 15 (Negative); Leukocyte Esterase Moderate (Negative); Nitrite Negative (Negative); Ph 6.5 (4.6-8.0); Protein,Urine Dip 100 (Negative); Specific Gravity >=1.030 (1.005-1.030); WBC 21-50 /HPF (0-5)
[2024-01-12 22:50] LABS: Absolute Neutrophil Ct (ANC) 7.44 x10^3/uL (1.4-6.9); BASOPHIL % 0.2 % (0.0-0.4); Basophil (Absolute #) 0.02 x10^3/uL (0-0.4); Eosinophil % 2.7 % (0.00-5.0); Eosinophil (Absolute #) 0.25 x10^3/uL (0-0.5); IMMATURE GRAN # 0.02 x10^3u/L (0.00-0.03); IMMATURE GRAN % 0.2 % (0.00-0.4); Lymphocyte (Absolute #) 0.97 x10^3/uL (1.0-4.6); Lymphocytes % 10.3 % (24.0-44.0); Mean Cell Volume 86.3 fL (78-100); Mean Corpuscular Hemoglobin 27.9 pg (26-32); Mean Corpuscular Hgb Concent. 32.4 g/dL (32-36); Monocyte (Absolute #) 0.71 x10^3/uL (0.0-1.3); Monocytes % 7.5 % (0.0-12.0); Neutrophil % 79.1 % (36.0-66.0); Platelet Count 251 x10^3/uL (150-450); Red Blood Count 3.94 x10^6/uL (4.1-5.4); Red Cell Distribution Width 13.2 % (11.5-14.0); White Blood Count 9.4 x10^3/uL (4.0-10.5)
[2024-01-12 23:05] LABS: ALBUMIN 4.1 g/dL (3.5-5.0); ANION GAP 11.8 MEQ/L (5-15); BILIRUBIN,TOTAL 0.3 mg/dL (0.2-1.3); Calcium 9.2 mg/dL (8.4-10.2); Creatinine 1 1.02 mg/dL (0.52-1.04); EST GLOMERULAR FILTRATION RATE 78.8 ML/MIN; Potassium 3.8 mmol/L (3.5-5.1); Total Protein 7.1 g/dL (6.3-8.2)
[2024-01-12] MEDS ORDERED: TYLENOL 325 MG ONE (23:23)
[2024-01-12] MEDS ORDERED: ROCEPHIN 1 GM / 100 ML NaCl 1 GM/100 ML IVPB IV ONE (23:23)
[2024-01-12] MEDS: TYLENOL 325 MG PO ONE (23:24)
[2024-01-12] MEDS: ROCEPHIN 1 GM / 100 ML NaCl 1 GM/100 ML IVPB IV ONE (23:24)
[2024-01-12 23:57] LABS: CHLAMYDIA DNA NOT DETECTED (NEGATIVE); GC DNA Probe NOT DETECTED (NEGATIVE)
[2024-01-12 23:59] LABS: HCG URINE TEST NEGATIVE (NEGATIVE)
[2024-01-13 01:15] LABS: Candida Group NOT DETECTED (NEGATIVE); Candida glab/krus NOT DETECTED (NEGATIVE)
--- NOTE | 2024-01-13 01:28 | XRAY ---
CLINICAL HISTORY: chest discomfort, tachycardia, PE r COMPARISON: None TECHNIQUE: Contiguous axial images were obtained from the neck base through the upper abdomen following intravenous administration of contrast material. If IV contrast material had not been administered, the likelihood of detecting abnormalities relevant to the patient's condition would have been substantially decreased. In addition, sagittal and coronal reconstructions were performed. CT scan was performed according to ALARA (as low as reasonable achievable). FINDINGS: The lungs are clear, with no focal areas of consolidation. Focal emphysematous changes noted in the superior segment of left lung lower lobe. Bibasal atelectasis changes noted. A 0.5 cm calcified nodule in the superior segment of right lung upper lobe . The central airways are patent. There are no pleural effusions. No pneumothorax is seen. No axillary, hilar, or mediastinal adenopathy is identified. The visualized thyroid is unremarkable. The heart, aorta, and pulmonary arteries are of normal size and configuration. No pericardial effusion is identified. 1.7 x 1.3 cm hemangioma noted in the segment of liver. No aggressive appearing osseous lesions are identified. IMPRESSION: No evidence of pulmonary embolism allowing for suboptimal opacification of pulmonary vasculature. Focal emphysematous changes noted in the superior segment of left lung lower lobe. A 0.5 cm calcified nodule in the superior segment of right lung upper lobe - Benign nodule. Electronically Signed by: Pankaj Islas MD. (01/13/2024 01:24:56 EDT)
[2024-01-13 01:42] VITALS: PULSE 99
[2024-01-13 01:43] VITALS: BP 103/64; RESP 20
[2024-01-13 01:46] VITALS: O2SAT 97
[2024-01-15 08:22] LABS: RPR Non Reactive (Non Reactive)
== END 2024-01-13 02:04 | disposition home or self-care (01) ==
LOC: ED 21:53
DX: N30.01 Acute cystitis with hematuria (principal); N76.0 Acute vaginitis; R00.2 Palpitations; R53.83 Other fatigue; R68.83 Chills (without fever); R07.9 Chest pain, unspecified; Z79.891 Long term (current) use of opiate analgesic; Z79.899 Other long term (current) drug therapy
CPT/HCPCS: 36000; 36415; 71260; 80053; 81001; 81025; 85025; 86592; 87040; 87086; 87481; 87491; 87591; 87661; 87801; 96360; 96365; 99284; J0696; A9270-GY